=== PATIENT | male | born 1955 | race Caucasian/White ===

== ENCOUNTER 2023-10-20 13:36 | Outpatient (CLI) | payer MEDICARE, OTHER, SELFPAY ==
--- NOTE | ~2023-10-20 | CT_ITS ---
EXAMINATION:CT diagnostic chest wo con DATE: 10/20/2023 13:57 INDICATION: Aortic root enlargement. TECHNIQUE: Computed tomography (CT) of the chest was performed without intravenous contrast. Automate d exposure control and iterative reconstruction technique were employed. The dose-length product (DLP ) was 274.20 mGy-cm. COMPARISON: None. FINDINGS: There is mild atelectasis bilaterally. A calcified right lung nodule and calcified right hi lar mediastinal lymph nodes are consistent with old granulomatous disease. There are few nodules in t he lungs measuring up to 3 mm, likely benign. No pleural effusion. The heart size is normal. There ar e calcifications of the aortic valve. The aorta measures 4.2 cm at the sinuses of Valsalva, 4.0 cm at the sinotubular junction, 4.3 cm in the mid ascending aorta, 3.0 cm at the aortic isthmus, and 3.3 c m in the mid descending aorta. No pericardial effusion. There is mild bilateral gynecomastia. Calcifi cations in the spleen are consistent with old granulomatous disease. There is mild thoracic spondylos is. IMPRESSION: 1. Ectasia of ascending aorta measuring 4.3 cm. Reviewed, dictated and finalized at location E.
== END 2023-10-20 13:37 | disposition home or self-care (01) ==
LOC: ANHIMG 13:39
PROVIDERS: PCP Internal Medicine; Referring Provider Nurse Practitioner Adult Health; Visit Provider Internal Medicine Cardiovascular Disease
DX: I77.89 Other specified disorders of arteries and arterioles (principal); I77.819 Aortic ectasia, unspecified site
CPT/HCPCS: 71250

== ENCOUNTER 2023-10-31 09:12 | Outpatient (CLI) | payer MEDICARE, OTHER, SELFPAY ==
--- NOTE | ~2023-10-31 | US_ITS ---
EXAMINATION: US aorta [facility] DATE: 10/31/2023 09:57 INDICATION: Aortic root enlargement and family history of abdominal aortic aneurysm TECHNIQUE: Grayscale, color Doppler, and pulsed Doppler images of the aorta and common iliac arteries were obtained. COMPARISON: None. FINDINGS: The proximal aorta measures 2.9 cm. The mid aorta measures 2.3 cm. The distal aorta measures 1.8 cm. The right common iliac artery measures 1.6 cm. The left common iliac artery measures 1.4 cm. IMPRESSION: 1. Normal caliber abdominal aorta. Reviewed, dictated and finalized at location B.
== END 2023-10-31 09:13 | disposition home or self-care (01) ==
PROVIDERS: PCP Internal Medicine; Visit Provider Internal Medicine Cardiovascular Disease
DX: Z13.6 Encounter for screening for cardiovascular disorders (principal); Z82.49 Family history of ischemic heart disease and other diseases of the circulatory system
CPT/HCPCS: 76706